=== PATIENT | female | born 1955 | race Two or more races ===

== ENCOUNTER 2025-07-29 10:35 | Emergency (ER) | payer BC ==
[~2025-07-29] VITALS: Ht 157.5 cm; Wt 86.2 kg
[2025-07-29] MEDS ORDERED: JANUMET 50-1,01 EACH PO (11:11)
[2025-07-29] MEDS ORDERED: METFORMIN HCL500 MG (11:12)
[2025-07-29] MEDS ORDERED: ACETAMINOPHEN 500 MG GEL..CAP PO ONE ×2 (11:28→11:30)
[2025-07-29] MEDS ORDERED: CETIRIZINE HCL 5MG/5ML BLIST.PACK PO ONE (11:29)
[2025-07-29] MEDS ORDERED: CETIRIZINE HCL 5 MG/5 ML ML PO ONE (11:30)
[2025-07-29 12:22] LABS: COVID-19 AG NEGATIVE (NEGATIVE)
[2025-07-29] MEDS ORDERED: BENZONATATE200 M1 PO (13:44)
[2025-07-29] MEDS ORDERED: ZYRTEC10 MG PO (13:44)
== END 2025-07-29 14:34 | disposition home or self-care (01) ==
LOC: ER 10:35
PROVIDERS: General Practice
DX: J00 Acute nasopharyngitis [common cold] (principal); Z20.822 Contact with and (suspected) exposure to COVID-19; E11.9 Type 2 diabetes mellitus without complications; Z79.84 Long term (current) use of oral hypoglycemic drugs